=== PATIENT | male | born 1980 | race Caucasian/White ===

== ENCOUNTER 2017-08-29 16:58 | Emergency (ER) | payer MEDICARE, MEDICAID ==
--- NOTE | 2017-08-29 17:54 | ED ---
Altered Mental Status - HPI Summary HPI Summary: Patient here with episode of altered mental status. He is a developmentally delayed, nonverbal patient who resides at [facility]. Staff here with him today reports she went into his room to check on him while he was napping at 15:00 this afternoon and he was not responding in ways that he typically would (ie. making clicking and grunting sounds, engaging in self injurous behavior). Was also found to have dried blood around his nares. He does have a history of seizures - not worse as of late per staff's understanding. No recent signs or symptoms of infection, change in appetite, vomiting, diarrhea, change in urinary habits. Behaviors have been as usual up until episode today. Still not responding appropriately. No h/o recent injury. 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 - Allergies/Home Medications Allergies/Adverse Reactions: Allergies Allergy/AdvReac Type Severity Reaction Status Date / Time diazepam [From Valium] Allergy Unknown Verified 08/30/17 12:30 Reaction Details erythromycin base Allergy Unknown Verified 08/30/17 12:30 Reaction Details penicillin V [From Pen-Vee K] Allergy Unknown Verified 08/30/17 12:30 Reaction Details Sulfa (Sulfonamide Allergy Unknown Verified 08/30/17 12:30 Antibiotics) Reaction Details Home Medications: Home Medications Ascorbic Acid TAB* [Vitamin C TAB*] 500 mg PO DAILY 08/29/17 [History Confirmed 08/29/17] Multivitamin [Multivitamins] 1 cap PO DAILY 08/29/17 [History Confirmed 08/29/17 ] Pantoprazole TAB (NF) [Protonix TAB (NF)] 40 mg PO DAILY 08/29/17 [History Confirmed 08/29/17] PMH/Surg Hx/FS Hx/Imm Hx Previously Healthy: Yes Endocrine/Hematology History: Denies: Hx Anticoagulant Therapy GI History: Comment Only: Other GI Disorders - chronic constipation Neurological History: Reports: Hx Seizures Comment Only: Other Neuro Impairments/Disorders - mr Psychiatric History: Reports: Other Psychiatric Issues/Disorders - explosive disorder, self-injurious behavior - Surgical History Surgery Procedure, Year, and Place: see Bambi Tripathi hx - Immunization History Immunizations Up to Date: Yes Infectious Disease History: No Infectious Disease History: Denies: Hx Clostridium Difficile, Hx Hepatitis, Hx Human Immunodeficiency Virus (HIV), Hx of Known/Suspected MRSA, Hx Shingles, Hx Tuberculosis, Hx Known/ Suspected VRE, Hx Known/Suspected VRSA, History Other Infectious Disease, Traveled Outside the [place] in Last 30 Days - Family History Known Family History: Positive: Unknown - Social History Occupation: Disabled Lives: Senior Living - [employer] Alcohol Use: None Hx Substance Use: No Substance Use Type: Reports: None Hx Tobacco Use: No Smoking Status (MU): Never Smoked Tobacco Review of Systems - ROS Summary Review of Systems Summary: Level 5 caveat - DD w/ extremely limited verbal communication Negative: Drainage, Erythema Positive: Epistaxis - suspected Negative: Shortness Of Breath Negative: Vomiting, Diarrhea Genitourinary: Negative Neurological: Other - AMS per staff observation Psychological: Other - lack of behavior as usual All Other Systems Reviewed And Are Negative: Yes Physical Exam Triage Information Reviewed: Yes Vital Signs On Initial Exam: Initial Vitals Temp Pulse Resp BP Pulse Ox 98.4 F 99 16 86/49 97 08/29/17 17:08 08/29/17 17:08 08/29/17 17:08 08/29/17 17:08 08/29/17 17:08 Vital Signs Reviewed: Yes Appearance: Positive: No Pain Distress - lying on stretcher on Lt side - barely responds to chest rub - started removing clothes and pt begins to rouse - clicking and grunting as well as striking his face/head, Well-Nourished Skin: Positive: Warm, Skin Color Reflects Adequate Perfusion, Dry Head/Face: Positive: Normal Head/Face Inspection - no mónica trauma observed however pt has what appears to be scar tissue over his face and forehead Eyes: Positive: Normal - Right sclera appears clear without discharge however rest of exam is very limited due to patient's lack of cooperation - attempted to visualize eyes with ophthalmoscope passively as well as actively by opening the lids however patient forcefully contracts eyes shut ENT: Positive: Pharynx normal - limited exam due to patient's lack of cooperation however no gross blood or signs of trauma observed, Nasal drainage - dried dark scabbing/blood? Rt nare - no active bleeding or drainage observed, TMs normal - No hemotympanum. Negative: Hearing grossly normal - Unsure as patient does not respond appropriately to questions Dental: Negative: Dental Fracture @ Respiratory/Lung Sounds: Positive: Breath Sounds Present. Negative: Tracheal Deviation Cardiovascular: Positive: Normal, RRR, Pulses are Symmetrical in both Upper and Lower Extremities, S1, S2. Negative: Leg Edema Left, Leg Edema Right Abdomen Description: Positive: Soft, Other: - Vast abdominal girthpatient does grunt with palpation at times however does not pull my hands away or move to get away from exam which he is capable of doing; no skin changes observed over chest or torso as well as upper or lower extremities Bowel Sounds: Positive: Present Musculoskeletal: Positive: Other - Appears to have contractures in upper extremities; moves legs and arms spontaneously Neurological: Positive: Other - limited exam Psychiatric: Positive: Other - limited exam - staff reports pt is starting to act more like himself re: movements, sounds Diagnostics - Vital Signs Vital Signs Temp Pulse Resp BP Pulse Ox 08/29/17 17:08 98.4 F 99 16 86/49 97 - Laboratory Result Diagrams: 08/29/17 18:00 08/29/17 18:00 Lab Statement: Any lab studies that have been ordered have been reviewed, and results considered in the medical decision making process. Re-Evaluation - Re-Evaluation First Eval Change: Improved - pt was "not himself" upon presentation (see HPI) - not responding to verbal commands or sternal rub but more alert as soon as he was physically stimulated with removal of his bottoms to check for wounds, sores, trauma. He then began clicking, grunting, opening his eyes and intermittently hitting himself. Seizure pads were placed around bed at this time and request to transfer out of fast track VITOR - discussed w/ charge nurse who agreed to move him to room #16 for further w/u and closer monitoring Second Eval Change: Improved - BP improved after IVF and pt remained alert - becoming agitated "like at home" per staff during CT and so ativan was ordered - pt tolerated well and CT was successful for imaging his face, head and neck Third Eval Change: Worse - pt became agitated again about 1 hour after ativan 1mg IV and nursing requesting assistance to attain U/A via catheter as he was near combative with her - another 1mg ativan ordered - pt tolerated well and U/A obtained Altered Mental Statu Course/Dx - Course Course Of Treatment: Pt presents w/ staff for "AMS" and dried blood around nares when staff went in to check on him around 15:00 today. Since the episode was unwittnessed and pt is non-verbal, a comprehensive w/u was initiated to assess for head/face/neck injury as well as occult anemia/blood loss w/ low BP, occult infection/spesis, etc. After assessing his labs (elevated WBC w/ elevated lactic acid level) and low BP, a bolus of IVF was ordered. CXR was ordered as I was concerned for aspiration penumonia w/ h/o seizures - this test was not available prior to sign out. U/A results were also not evaluated as test was still pending at time of sign out. Furthermore, he was not found to have any lesions,wounds or area on skin that appeared to be infected. It was also suspected that pt's AMS could have been the result of an unwittnessed seizure w/ post-ictal state as he perked up once here. This could explain elevated lactic acid level if he ultimately does not have an infection. He does not have a fever and again, BP improved w/ fluids (NOTE: past BP's here have been low). Another theory was concussion as he had dried blood around his nose, I witnessed him striking himself in the head w/ h/o self injurous behavior and soft tissue swelling on of Lt side of face of CT scan. No acute fx, bleeding or neck injury found on CT reports prior to sign out. Pt discussed and signed out to Manisha Ro PA-C in gaurded but improved condition re: alertness and blood pressure which remained controlled for hours after IVF's. Whatever final dx comes of pt's testing here mu, would encourage staff to implement safer plan of action when he becomes self-injurous, especially if he is to be left alone. Staff here mu could not offer any coping skills/tactics omplemented at his residence when he became agitated tonight which is why ativan was provided. KIARA wraps to his arms were also orderd at one point as nursing reported pt was biting himself (did not break skin). Although it is known that he "just does this", a different approach may serve him better. And perhaps there is something in place at his residence and it was that this staff member is simply not aware of his coping tactics. - Diagnoses Provider Diagnoses: Altered mental status, unspecified, Facial trauma, Self-injurious behavior Discharge - Discharge Plan Condition: Stable Disposition: HOME Patient Education Materials: Altered Mental Status (ED) Referrals: John Renee MD [Primary Care Provider] -
[2017-08-29 18:14] LABS: ABS Basophils 0 10^3/ul (0-0.2); ABS Eosinophils 0 10^3/ul (0-0.6); ABS Lymphocytes 0.5 10^3/ul (1.0-4.8); ABS Monocytes 0.4 10^3/ul (0-0.8); ABS Neutrophils 9.2 10^3/ul (1.5-7.7); ABS Nucleated RBC 0 10^3/ul; Eosinophil % 0 % (0-6); Hematocrit 43 % (42-52); Hemoglobin 14.8 g/dl (14.0-18.0); Lymphocyte % 4.6 % (25-47); Mean Corpuscular HGB Conc 35 g/dl (31-36); Mean Corpuscular Hemoglobin 33 pg (27-31); Mean Corpuscular Volume 94 fL (80-94); Mean Platelet Volume 7 um3 (7.4-10.4); Nucleated Red Blood Cells % 0; Platelet Count 165 10^3/ul (150-450); Red Blood Count 4.53 10^6/ul (4.0-5.4); Red Cell Distribution Width 13 % (10.5-15); White Blood Count 10.1 10^3/ul (3.5-10.8)
[2017-08-29 18:21] LABS: INR 1.02 (0.77-1.02)
[2017-08-29 18:29] LABS: EGFR Non-African American 100.9 (>60)
[2017-08-29] MEDS ORDERED: NS 0.9% 1000 ML*IV.FLUID IV ONE (18:42)
[2017-08-29] MEDS ORDERED: LORazepam INJ* 2 MG/ML 1 ML VIAL IV PUSH ONE ×2 (19:11→20:37)
--- NOTE | 2017-08-29 20:40 | RAD ---
Indication: Altered mental status. Seizure disorder. Comparison: February 12, 2013 and August 25, 2012 CT exams. Technique: Noncontrast CT vertex of skull through foramen magnum. Report: Bilateral chronic calcified ocular globes. 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 Unchanged asymmetric LEFT larger than RIGHT lateral ventricles. Negative for sulcal effacement, midline shift, or effacement of the basal cisterns. Negative for new person matter white matter obscuration. Negative for intra or extra-axial hemorrhage. Negative for calvarial or skull base fracture. Grossly clear visualized paranasal sinuses and mastoid air spaces. Negative for scalp hematoma. IMPRESSION: 1. No CT evidence for acute traumatic brain injury or other acute intracranial process. 2. 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
--- NOTE | 2017-08-29 20:45 | RAD ---
INDICATION: Altered mental status. Seizure disorder. Dry blood around the RIGHT nare. COMPARISON: August 25, 2012 TECHNIQUE: Multidetector CT base of the skull through mandible without contrast. Multiplanar reformation. REPORT: Refer to dedicated CT of the brain for description of congenital malformations of the brain. Bilateral calcified cartilage of the external ears. Bilateral phthisis bulbi. Soft tissue swelling at the LEFT greater than RIGHT nasolabial folds and over the maxillary oral lip. No loculated hematoma visualized. Negative for subcutaneous emphysema. The orbital and maxillary sinus margins, zygomatic arches, lamina papyracea, base of the maxilla, pterygoid plates, and nasal bones are intact. The mandible is intact. Normal temporal mandibular joint alignment. Normally aerated paranasal sinuses and mastoid air spaces. IMPRESSION: 1. Negative for maxillofacial fracture. 2. Soft tissue swelling at the LEFT greater than RIGHT nasolabial folds and over the maxillary oral lip. No loculated hematoma visualized. Negative for subcutaneous emphysema.
--- NOTE | 2017-08-29 20:52 | RAD ---
INDICATION: Altered mental status. Seizure disorder. COMPARISON: CT brain and maxillofacial exams of the same date. TECHNIQUE: Multidetector CT images foramen magnum to lung apices without contrast. Multiplanar reformation. REPORT: Normal vertebral alignment accounting for exam positioning without spondylolisthesis or subluxation at any level. Negative for cervical vertebral body or posterior element fracture. Negative for paravertebral hematoma. Grossly preserved disc spaces. IMPRESSION: No CT evidence for traumatic cervical spine injury.
--- NOTE | 2017-08-29 21:14 | RAD ---
Indication: Altered mental status. History of pneumonia. Comparison: August 12, 2015 CT. Technique: Sitting AP and lateral chest views. Report: Clear lungs and pleural spaces. Negative for pneumothorax. Negative for cardiomegaly. Unremarkable central pulmonary vasculature. Chronic retrocardiac hiatal hernia. Negative for free air beneath the diaphragm. IMPRESSION: No evidence for pneumonia. No evidence for acute intrathoracic disease.
[2017-08-29 21:42] LABS: Urine Appearance Clear; Urine Blood Negative (Negative); Urine Color Yellow; Urine Ketones Trace (Negative); Urine Protein Negative (Negative); Urine Specific Gravity 1.028 (1.010-1.030); Urine Urobilinogen Negative (Negative)
[2017-08-29] MEDS ORDERED: Acetaminophen SUPP* 650 MG SUPP PR ONE (22:43)
[2017-08-29 23:08] VITALS: BP 112/70
--- NOTE | 2017-08-30 01:01 | PN ---
Progress Note - Progress Note Date of Service: 08/30/17 Note: Signed out by AMBROSIO Mancilla Course of treatment: unwitnessed AMS w/ nares dried blood. COuld charlee been post ictal as he perked up once here. No acute trauma identified. Labs are relative to his usual. Pending CXR to assses for aspiration pneum and U/A for uti. Signed outto Manisha Pena Chest x-ray negative. UA negative for any UTI. 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 Stable.
== END 2017-08-29 23:37 | disposition home or self-care (01) ==
LOC: ED 16:58
DX: R41.82 Altered mental status, unspecified (principal); S09.93XA Unspecified injury of face, initial encounter; Y33.XXXA Other specified events, undetermined intent, initial encounter; Y92.89 Other specified places as the place of occurrence of the external cause; Q04.9 Congenital malformation of brain, unspecified; Z91.5 Personal history of self-harm; Z88.3 Allergy status to other anti-infective agents; Z88.0 Allergy status to penicillin; Z88.2 Allergy status to sulfonamides; Z88.8 Allergy status to other drugs, medicaments and biological substances
CPT/HCPCS: 36415; 70450; 70486; 71046; 72125; 80053; 81003; 83605; 83735; 85025; 85610; 87502; 93005; 96360; 96361; 99284; A9270-GY; J2060

== ENCOUNTER 2017-08-30 12:07 | Observation (INO) | payer MEDICARE, MEDICAID ==
[2017-08-30] MEDS ORDERED: NS 0.9% 1000 ML* 2,000 ML IV ONE (12:39)
[2017-08-30] MEDS ORDERED: metroNIDAZOLE IV 500 MG/100ML* 500 MG/100 ML BAG IVPB ONE (12:49)
[2017-08-30] MEDS ORDERED: Ciprofloxacin 400MG IVPREMIX(* 400 MG/200 ML BAG IVPB ONE (12:49)
[2017-08-30] MEDS ORDERED: Vancomycin(*) 1,000 MG VIAL IVPB SCH (13:00)
[2017-08-30 13:31] LABS: INR 1.07 (0.77-1.02)
--- NOTE | 2017-08-30 13:49 | RAD ---
HISTORY: Sepsis COMPARISONS: August 29, 2017 VIEWS: 1: frontal portable view of the chest at 1:22 PM. The patient is slightly obliqued to the left. Evaluation the lung apices is limited by head positioning. FINDINGS: LINES AND TUBES: None. CARDIOMEDIASTINAL SILHOUETTE: The cardiomediastinal silhouette is normal for portable technique. PLEURA: The costophrenic angles are sharp. No pleural abnormalities are noted. LUNG PARENCHYMA: The lungs are clear. ABDOMEN: The upper abdomen is clear. There is no subphrenic gas. BONES AND SOFT TISSUES: No bone or soft tissue abnormalities are noted. IMPRESSION: NO ACTIVE CARDIOPULMONARY DISEASE.
[2017-08-30 13:54] LABS: EGFR Non-African American 156.8 (>60)
[2017-08-30] MEDS ORDERED: Vancomycin(*) 1,000 MG - ED ONCE IVPB ONE ×2 (14:00)
[2017-08-30 14:39] LABS: ABS Basophils 0 10^3/ul (0-0.2); ABS Eosinophils 0.1 10^3/ul (0-0.6); ABS Monocytes 0.3 10^3/ul (0-0.8); ABS Neutrophils 2.8 10^3/ul (1.5-7.7); ABS Nucleated RBC 0 10^3/ul; Eosinophil % 2.5 % (0-6); Hematocrit 28 % (42-52); Hemoglobin 9.9 g/dl (14.0-18.0); Lymphocyte % 23.9 % (25-47); Mean Corpuscular HGB Conc 35 g/dl (31-36); Mean Corpuscular Hemoglobin 33 pg (27-31); Mean Corpuscular Volume 95 fL (80-94); Mean Platelet Volume 6 um3 (7.4-10.4); Nucleated Red Blood Cells % 0; Platelet Count 110 10^3/ul (150-450); Red Blood Count 2.99 10^6/ul (4.0-5.4); Red Cell Distribution Width 13 % (10.5-15); White Blood Count 4.3 10^3/ul (3.5-10.8)
[2017-08-30 15:33] LABS: Urine Appearance Cloudy; Urine Blood Negative (Negative); Urine Color Straw; Urine Ketones Negative (Negative); Urine Protein Negative (Negative); Urine Specific Gravity 1.005 (1.010-1.030); Urine Urobilinogen Negative (Negative)
[2017-08-30] MEDS ORDERED: Acetaminophen TAB* 325 MG PO PRN (17:39)
[2017-08-30] MEDS ORDERED: Ondansetron INJ* 2 MG/ML VIAL IV PRN (17:39)
[2017-08-30 18:01] LABS: ABS Basophils 0 10^3/ul (0-0.2); ABS Eosinophils 0.1 10^3/ul (0-0.6); ABS Lymphocytes 1.1 10^3/ul (1.0-4.8); ABS Monocytes 0.3 10^3/ul (0-0.8); ABS Neutrophils 2.3 10^3/ul (1.5-7.7); ABS Nucleated RBC 0 10^3/ul; Eosinophil % 2.5 % (0-6); Hematocrit 31 % (42-52); Hemoglobin 10.5 g/dl (14.0-18.0); Lymphocyte % 29.1 % (25-47); Mean Corpuscular HGB Conc 34 g/dl (31-36); Mean Corpuscular Hemoglobin 33 pg (27-31); Mean Corpuscular Volume 95 fL (80-94); Mean Platelet Volume 6 um3 (7.4-10.4); Nucleated Red Blood Cells % 0.1; Platelet Count 108 10^3/ul (150-450); Red Blood Count 3.23 10^6/ul (4.0-5.4); Red Cell Distribution Width 12 % (10.5-15); White Blood Count 3.8 10^3/ul (3.5-10.8)
[2017-08-30 18:15] LABS: EGFR Non-African American 166.7 (>60); Immature Retic Fraction 0.47
[2017-08-30 18:18] LABS: Hematocrit for Retic CNT 31 % (42-52); RBC Retic Count 3.23 10^6/ul (4.6-6.2)
[2017-08-30] MEDS ORDERED: cefTRIAXone(*) 1 GM in NS 0.9% 50 ML* 50 ML IVPB SCH (18:30)
[2017-08-30] MEDS: NS 0.9% 1000 ML* 1,000 ML IV SCH (19:28)
[2017-08-30] MEDS ORDERED: Azithromycin IV(*) 500 MG in NS 0.9% 250 ML* 250 ML IVPB SCH (20:00)
[2017-08-30] MEDS ORDERED: OXCARBAZEPINE 600 MG PO SCH (21:00)
[2017-08-30] MEDS ORDERED: Topiramate TAB(*) 100 MG PO SCH (21:00)
--- NOTE | 2017-08-30 22:36 | HP ---
CC: Dr. Renee * HISTORY AND PHYSICAL: DATE OF ADMISSION: 08/30/17 PRIMARY CARE PROVIDER: Dr. Renee. ATTENDING PHYSICIAN WHILE IN THE HOSPITAL: Carol Ko MD * (report dictated by Karma Mcleod NP). CHIEF COMPLAINT: 1. Altered mental status. 2. Decreased appetite. 3. Not feeling well. HISTORY OF PRESENT ILLNESS: Mr. Stewart is a 37-year-old male patient who comes into the ED today. He is a resident at [facility]. He is nonverbal. He has severe intellectual developmental delay. He is really unable to participate in giving any history. According to staff that is with him presently at the bedside, they have noticed in the last couple of days that he has had decreased in his mentation. He has not been acting himself. He has had decreased input. He has been having decreased appetite, not drinking. They were concerned yesterday because they noticed some blood near his nares, they are concerned as he may have hit his head, had CT imaging in the ER when he came in yesterday on the , was essentially negative, but it was noted at discharge he did have a fever. I noticed today that he was not acting himself again. They do note that in the last of couple days that he has had a cough and ___ and congested. He also does have a history of self-inflicted behaviors. [facility] staff was concerned because he did not appear to be again acting himself. There has been no reports of diarrhea. No tarry stools. No vomiting. No coffee grounds emesis. He really is unable to tell us if he is in pain or not, they were concerned and they brought the patient into the ED today to be reevaluated because he appeared to be getting worse. Because of this , we were asked to evaluate for admission. PAST MEDICAL HISTORY: Significant for: 1. Intellectual developmental delay. 2. Nonverbal. 3. Constipation. 4. GERD. 5. Seizures. 6. He is legally binding. 7. Explosive disorder. 8. Self-inflicted behaviors. PAST SURGICAL HISTORY: Unable to be obtained. HOME MEDICATIONS: According to the list provided include: 1. Halcion 0.75 mg p.o. daily as needed. 2. Triamcinolone cream 1 application topically daily as needed. 3. Fleet enema 1 enema [place] daily as needed. 4. Dulcolax suppository 10 mg [place] daily as needed. 5. Debrox 3 drops otic b.i.d. 6. Tylenol 650 mg p.o. every 4 hours as needed. 7. Benadryl 25 mg p.o. t.i.d. as needed. 8. Seroquel 100 mg p.o. t.i.d. 9. Echinacea 350 mg p.o. daily. 10. Vitamin C 500 mg daily. 11. Chlorhexidine mouthwash 5 cc p.o. b.i.d. 12. Saline nasal drops 2 sprays inhaled b.i.d. 13. Colace 100 mg p.o. b.i.d. 14. Oxcarbazepine 600 mg p.o. b.i.d. 15. Trileptal 300 mg p.o. b.i.d. 16. Topamax 200 mg daily. 17. Topamax 100 mg p.o. b.i.d. 18. Catapres 1.5 tablets p.o. daily. 19. Protonix 40 mg daily. 20. Zoloft 150 mg daily. 21. Bacitracin 1 application topically daily. 22. Metoprolol XL 25 mg p.o. daily. 23. Multivitamin 1 tablet daily. 24. Lactulose 30 cc p.o. daily. ALLERGIES TO MEDICATIONS: Include VALIUM, ERYTHROMYCIN, PENICILLIN, and SULFA. FAMILY HISTORY: Reviewed with the patient's mother and essentially is noncontributory. There are no reports of seizures disorder or no reports of heart disease with the family. SOCIAL HISTORY: He does reside at [facility]. Surrogate decision maker is his mother. He is not a smoker. He does not drink. REVIEW OF SYSTEMS: Unable to be obtained because of the patient is nonverbal. PHYSICAL EXAMINATION GENERAL: At this time, Mr. Stewart is a 37-year-old male patient. He is sitting in the ED stretcher. He does not appear to be in any acute respiratory distress. VITAL SIGNS: Initially when the patient came in, his blood pressures were 87/44 ; he appeared to be hypothermic at 95.6, response to the fluid, last blood pressure was 113/61, pulse 85, respirations 18, O2 sat 100%. HEENT: Head: Atraumatic and normocephalic. Eyes: EOMs are intact. Sclerae anicteric. Throat: Oral mucosa appears to be dry. No oropharyngeal erythema. LUNGS: He did have wheezing on his left side. He had equal diaphragmatic expansion. HEART: Sounds S1, S2. ABDOMEN: Soft, it was flat, cannot really illicit any tenderness. Bowel sounds are present. EXTREMITIES: He has contracted lower extremities. There is no peripheral edema. No rashes were noted. No signs of cellulitis. SKIN: Grossly intact, did not appreciate any open areas. DIAGNOSTIC STUDIES/LAB DATA: Today revealed a WBC of 4.3, RBC of 2.99, hemoglobin 9.9, hematocrit 28, platelet count 110. His INR was 1.07. Sodium is 133, potassium is 3.6, chloride was 108. His sodium less than 24 hours ago was 130 and his chloride was 100, his bicarb is 22, the BUN is 22, his creatinine was 0.58, down from 0.85, his glucose was 122, lactic was 2.3, repeat was 1.2, calcium 8.2, total bili 0.2, ALT 9, alk phos was 53. Troponin 0 , CRP 55. Urine was obtained today, it was negative. Serology was flu negative as well yesterday. He had chest x-ray obtained today revealing no active cardiopulmonary disease. EKG today shows a normal sinus rhythm, rate of 89. He had flattened T waves in V4 and V5, biphasic in V2 and V3, flattened V3. Previous EKG again difficult with significant amount of artifact. Previous EKG did show sinus tachycardia, rate of 126 from 2016. Old medical records were reviewed. He had a brain CT that essentially was negative yesterday. No CT evidence of acute traumatic brain injury or other intracranial process. He had a maxillofacial CT done yesterday as well, which showed negative for maxillofacial fracture, soft tissue swelling of the left greater than right knee nasolabial fold and over the maxillary oral lip and he has cervical spine CT as well, which revealed no CT evidence for traumatic cervical spine injury. Old medical records reviewed. ASSESSMENT AND PLAN: Mr. Sharif is a 37-year-old male patient that comes into the emergency department today with complaints of altered mental status, not feeling well, concerned for some episode of vomiting and also in addition to this was noted to have being congested, runny nose and a cough over the last few days. We were asked to evaluate for admission. He will be admitted under observation status: 1. Systemic inflammatory response syndrome. Again, it is unclear of the etiology if he does have an infection at this point. I am concerned of a respiratory source with wheezing on exam. He does not appear to have pneumonia on x-ray. However, I do think that it is appropriate because he had a fever yesterday of 101 on 08/29/17 when he was here in the ED. Did go ahead and put him on Rocephin and azithromycin, try to get sputum cultures, Legionella and Strep pneumo antigens and we will continue to follow, blood cultures were sent. We will continue to follow. 2. Anemia. I am repeating a sample now. There has been no reports of tarry stools, no reports of coffee ground emesis, so repeat his H and H now. I also did send off iron studies, folate, MMA, B12, retic count, haptoglobin and LDH time being, we will continue to follow. If there are any concerns of bleeding, the source of this would be unclear at this point and I did order stool occult blood. 3. DVT prophylaxis. Because of the new onset anemia, I did put him on SCDs. 4. History of intellectual developmental delay. Supportive care. 5. History of constipation. I will continue his meds. 6. Gastroesophageal reflux disease. Continue PPI therapy. 7. Seizures. We will continue his meds as prescribed, also he is on seizure precautions. 8. History of explosive disorder. Continue meds as prescribed. 9. Hypertension. This is probably multifactorial, could be related to infection, could also be related to the fact that he was on blood pressure medications and the fact that he is not eating and drinking. He may have decreased clearance particularly from his long-acting BP meds. He responded to fluids, holding the BP meds for time being and we will continue to follow him. 10. Fluids, electrolytes, and nutrition. He can have a regular diet. 11. Code status. Full code. TIME SPENT: Time spent on admission 60 minutes, greater than half of the time was spent [id number] with the patient obtaining my history and physical, other half time spent going over the plan of care with the patient and implementing plan of care. I did discuss the plan of care with my attending, Dr. Ko, he is in agreement. KARMA MCLEOD, AUTO AIR CONDITIONING APPRENTICE [id number]/[facility] #: [id number] [place]
[2017-08-30] MEDS: Chlorhexidine MOUTHWASH 0.12%* 15 ML UDC SWISH SPIT SCH (23:15)
[2017-08-30] MEDS: Saline NASAL DROPS 0.65%* 1 DROP BTL BOTH NARES SCH (23:15)
[2017-08-30] MEDS: OXcarbazepine TAB(*) 300 MG PO SCH (23:16)
[2017-08-30] MEDS: Docusate CAP* 100 MG PO SCH (23:17)
[2017-08-30] MEDS: QUEtiapine TAB* 100 MG PO SCH (23:17)
[2017-08-31] MEDS ORDERED: Haloperidol INJ IV/IM* 5 MG/ML AMP IV ONE (04:11)
[2017-08-31] MEDS ORDERED: Haloperidol INJ IV/IM* 5 MG/ML AMP ONE (04:20)
[2017-08-31] MEDS: NS 0.9% 1000 ML* 1,000 ML IV SCH (05:34)
[2017-08-31 08:33] LABS: ABS Basophils 0 10^3/ul (0-0.2); ABS Eosinophils 0.3 10^3/ul (0-0.6); ABS Lymphocytes 1.4 10^3/ul (1.0-4.8); ABS Monocytes 0.3 10^3/ul (0-0.8); ABS Neutrophils 2.8 10^3/ul (1.5-7.7); ABS Nucleated RBC 0 10^3/ul; Eosinophil % 5.3 % (0-6); Hematocrit 30 % (42-52); Hemoglobin 10.6 g/dl (14.0-18.0); Lymphocyte % 28.7 % (25-47); Mean Corpuscular HGB Conc 35 g/dl (31-36); Mean Corpuscular Hemoglobin 33 pg (27-31); Mean Corpuscular Volume 93 fL (80-94); Mean Platelet Volume 7 um3 (7.4-10.4); Nucleated Red Blood Cells % 0; Platelet Count 106 10^3/ul (150-450); Red Blood Count 3.23 10^6/ul (4.0-5.4); Red Cell Distribution Width 13 % (10.5-15); White Blood Count 4.8 10^3/ul (3.5-10.8)
[2017-08-31 08:54] LABS: EGFR Non-African American 199.9 (>60)
[2017-08-31] MEDS ORDERED: Sertraline* 100 MG TAB PO SCH (09:00)
[2017-08-31] MEDS ORDERED: CMCS: Pantoprazole TAB (NF) 40 MG TAB PO SCH (09:00)
[2017-08-31] MEDS ORDERED: Topiramate TAB(*) 100 MG PO SCH (09:00)
[2017-08-31] MEDS ORDERED: Ascorbic Acid TAB* 500 MG PO SCH (09:00)
[2017-08-31 09:15] VITALS: BP 109/55
[2017-08-31] MEDS: Chlorhexidine MOUTHWASH 0.12%* 15 ML UDC SWISH SPIT SCH (10:23)
[2017-08-31] MEDS: Saline NASAL DROPS 0.65%* 1 DROP BTL BOTH NARES SCH (10:23)
[2017-08-31] MEDS: QUEtiapine TAB* 100 MG PO SCH (10:24)
[2017-08-31] MEDS: Docusate CAP* 100 MG PO SCH (10:24)
[2017-08-31] MEDS: OXcarbazepine TAB(*) 300 MG PO SCH (10:27)
--- NOTE | 2017-08-31 12:50 | DS ---
DATE OF ADMISSION: 08/30/2017. DATE OF DISCHARGE: 08/31/2017. ADMITTING PROVIDER: Temo Mcleod NP. PRIMARY CARE PHYSICIAN: John Renee MD. ATTENDING PHYSICIAN: Hakeem Vidal MD. CHIEF COMPLAINT: Decreased appetite, altered mental status in the setting of profound intellectual development and behavioral deficits, report of black liquid found near nose two days prior to admission. PRINCIPAL DIAGNOSIS: Constipation. HISTORY OF PRESENT ILLNESS AND HOSPITAL COURSE: James Stewart is a 37-year-old male with a past medical history of severe intellectual developmental delay, explosive disorder, seizures, GERD, constipation with frequent use of enemas and suppositories despite long-standing Lactulose use, nonverbal, and self- injurious behavior. He was brought in by his providers as he has not been acting himself, has had decreased appetite over the last few days. Notably he had presented to the emergency room on the day prior with report of a black substance that they thought was possible feces or stool near his nares and there was concern he may have hit his head. He had a CT which was essentially negative. Of note, on discharge from the ED, he was noted to have a fever of 101. The patient had a last known bowel movement that afternoon prior to emergency room visit. He was found on this admission to have concern for SIRS. He had a chest x-ray which was without infiltrate, but on admitting there was concern for wheezing and he was put on Ceftriaxone and Azithromycin initially. He had negative strep legionella and strep pneumoniae urine antigens. MRSA nares was negative. He had stool occult blood which was negative and influenza had been negative in the emergency room on August 29. He was afebrile during this admission without evidence of cough. He has no leukocytosis. The morning of hospital day number two, he had what the nurse describes as a very large and very hard bowel movement without evidence of blood. He is being discharged back home with working diagnosis of agitation in the setting of constipation and also evidence of iron deficiency anemia with iron of 22, iron sat of 13, ferritin of 68. He had an LDH of 93. His hemoglobin on presentation was 9.9, improved to 10.5 on the day of discharge. It has been recommended to increase his standing Lactulose to 30 mg twice a day from once a day and continue Colace 100 mg b.i.d., and prn orders for fleet enemas and suppositories as needed. There is also consideration to follow-up with Gastroenterology as an outpatient to rule out any source of upper GI bleed, although as of noted stool occult blood was negative here, but there was some concern for a "black" substance found near his nose on August 29. He does carry a standing history of GERD. No other medication changes were made. MEDICATIONS ON DISCHARGE: 1. Ascorbic acid 500 mg p.o. daily. 2. Peridex mouthwash 5 ml p.o. b.i.d. 3. Docusate 100 mg p.o. b.i.d. 4. Trileptal 300 mg p.o. b.i.d. 5. Pantoprazole 40 mg p.o. daily. 6. Seroquel 100 mg p.o. t.i.d. 7. Saline nasal drops two sprays inhaled b.i.d. 8. Sertraline 150 mg p.o. daily. 9. Topamax 200 mg p.o. daily. 10. Tylenol 650 mg p.o. q.4 hours prn. 11. Bacitracin one application topical daily. 12. Bisacodyl (Dulcolax suppository) per rectum prn daily. 13. Debrox three drops otic b.i.d. 14. Clonidine 1.5 mg tabs (0.1 mg) p.o. b.i.d. 15. Benadryl 25 mg p.o. t.i.d. prn. 16. Echinacea 350 mg p.o. daily. 17. Metoprolol Succinate 25 mg p.o. daily. 18. Lactulose 30 ml p.o. b.i.d. (increased from daily). 19. Multivitamin one tab p.o. daily. 20. Oxcarbazepine 600 mg p.o. b.i.d. 21. Fleet enema per rectum prn daily. 22. Topamax 100 mg p.o. daily. 23. Kenalog 0.1% cream applied topically prn. 24. Triazolam tabs 0.7 mg p.o. daily (Halcion). DIET: Mechanical ground texture. ACTIVITY LEVEL: No restrictions. FOLLOW-UP: Please follow-up with Dr. John Renee within five days of discharge. Consideration to see wet roaster for upper GI evaluation to rule out GI source of anemia, though his stool occult blood was negative here. Also consideration to start iron supplementation, though Albertina, the casting house worker, was leery of this given his long-standing constipation issues. Time spent on this discharge was 35 minutes. [id number]/[facility] #: [id number] ALEXANDREA
== END 2017-08-31 13:00 | disposition home or self-care (01) ==
LOC: ED 12:07 → MED 17:31
PROVIDERS: ADMIT Internal Medicine; ATTEND Internal Medicine
DX: K59.00 Constipation, unspecified (principal); R41.82 Altered mental status, unspecified; R63.0 Anorexia; F81.9 Developmental disorder of scholastic skills, unspecified; K21.9 Gastro-esophageal reflux disease without esophagitis; R56.9 Unspecified convulsions; F63.81 Intermittent explosive disorder; Z72.89 Other problems related to lifestyle; F80.9 Developmental disorder of speech and language, unspecified; D64.9 Anemia, unspecified; I10 Essential (primary) hypertension
CPT/HCPCS: 36415; 71045; 80048; 80053; 80183; 80201; 81003; 82270; 82607; 82728; 82746; 82803; 83010; 83540; 83550; 83605; 83615; 83921; 84145; 84484; 85025; 85045; 85610; 85730; 86140; 87040; 87641; 87899; 93005; 96365; 96366; 99285; A9270-GY; J0456; J0696; J1630; J3370; J3490

== ENCOUNTER 2018-08-04 12:38 | Emergency (ER) | payer MEDICARE, MEDICAID ==
[2018-08-04 15:23] VITALS: BP 145/79
--- NOTE | 2018-08-04 16:05 | UC ---
Skin Complaint HPI - HPI Summary HPI Summary: 38-year-old male with history of developmental delay presents with caregivers reporting abrasion to his left ulnar hand that was discovered last evening. Unknown mechanism of injury. States patient has continued to use the hand normally. Denies fever, chills, or purulent drainage. - History of Current Complaint Chief Complaint: UCSkin Time Seen by Provider: 08/04/18 15:48 Stated Complaint: ABRASION ON RT WRIST Pain Intensity: 0 - Allergy/Home Medications Allergies/Adverse Reactions: Allergies Allergy/AdvReac Type Severity Reaction Status Date / Time diazepam [From Valium] Allergy Unknown Verified 08/04/18 15:23 Reaction Details erythromycin base Allergy Unknown Verified 08/04/18 15:23 Reaction Details penicillin V [From Pen-Vee K] Allergy Unknown Verified 08/04/18 15:23 Reaction Details Sulfa (Sulfonamide Allergy Unknown Verified 08/04/18 15:23 Antibiotics) Reaction Details cod liver oil [From Desitin] AdvReac Unknown Verified 08/04/18 15:24 Reaction Details zinc oxide [From Desitin] AdvReac Unknown Verified 08/04/18 15:24 Reaction Details Home Medications: Home Medications [id number] [Beano] 300 unit PO TID 08/04/18 [History Confirmed ] Chlorhexidine Gluconate [Peridex] 15 ml MM BID 08/04/18 [History Confirmed 08/04] Docusate CAP* [Colace Cap*] 100 mg PO BID 08/04/18 [History Confirmed 08/04/18] Lactulose* 30 ml PO BID 08/04/18 [History Confirmed 08/04/18] Metoprolol Succinate XL TAB* [Toprol XL TAB*] 25 mg PO DAILY 08/04/18 [History Confirmed 08/04/18] Multivitamin/Iron/Folic Acid [Multivitamin with Iron Tablet] 1 each PO DAILY 07/22 [History Confirmed 08/04/18] OXcarbazepine TAB(*) [Trileptal 300 mg TAB(*)] 300 mg PO BID 08/04/18 [History Confirmed 08/04/18] Pantoprazole TAB * [Protonix TAB*] 40 mg PO DAILY 08/04/18 [History Confirmed ] Polyethylene Glycol 3350* [Miralax*] 17 gm PO DAILY 08/04/18 [History Confirmed 08/04/18] QUEtiapine TAB* [Seroquel 100 MG *] 100 mg PO TID 08/04/18 [History Confirmed ] QUEtiapine XR TAB* [Seroquel Xr 300 MG TAB*] 300 mg PO BEDTIME 08/04/18 [ History Confirmed 08/04/18] Saline NASAL SPRAY 0.65%* [Sodium Chloride 0.65% Nasal [place]*] 1 spray BOTH NARES BID 08/04/18 [History Confirmed 08/04/18] Sertraline* [Zoloft*] 150 mg PO DAILY 08/04/18 [History Confirmed 08/04/18] Simethicone TAB* [Mylicon TAB*] 2 tab PO QID 08/04/18 [History Confirmed ] Topiramate TAB(*) [Topamax 100 mg tab] 100 mg PO BID 08/04/18 [History Confirmed 08/04/18] Topiramate [Topamax] 200 mg PO DAILY 08/04/18 [History Confirmed 08/04/18] cloNIDine TAB* [Catapres 0.1 MG TAB*] 0.1 mg PO BID 08/04/18 [History Confirmed 08/04/18] PMH/Surg Hx/FS Hx/Imm Hx - Additional Past Medical History Additional PMH: Developmental delay Cardiovascular History: Hypertension GI/ History: Gastroesophageal Reflux Other History Of: Negative For: Anticoagulant Therapy - Surgical History Surgical History: Unable to Obtain/Confirm Surgery Procedure, Year, and Place: see Bambi Tripathi hx - Family History Known Family History: Positive: Unknown - LEVEL 5 CAVEAT: LIMITED DUE TO AMS - Social History Occupation: Disabled Lives: [place] Alcohol Use: None Substance Use Type: None Smoking Status (MU): Never Smoked Tobacco - Immunization History Most Recent Influenza Vaccination: 2014 Most Recent Tetanus Shot: 2010 Most Recent Pneumonia Vaccination: never Review of Systems All Other Systems Reviewed And Are Negative: Yes Constitutional: Negative: Fever, Chills Skin: Positive: Other - See HPI Respiratory: Positive: Negative Cardiovascular: Positive: Negative Gastrointestinal: Positive: Negative Genitourinary: Positive: Negative Musculoskeletal: Positive: Negative Neurological: Positive: Negative Is Patient Immunocompromised?: No Physical Exam Triage Information Reviewed: Yes Completion Of Physical Exam Limited Due To: Patient is uncooperative with exam - Due to developmental delay Appearance: Well-Appearing, No Pain Distress, Well-Nourished Vital Signs: Initial Vital Signs Temp 97.4 F 08/04/18 15:15 Pulse 108 08/04/18 15:15 Resp 24 08/04/18 15:15 BP 145/79 08/04/18 15:15 Vital Signs Reviewed: Yes Respiratory: Positive: Lungs clear, Normal breath sounds, No respiratory distress Cardiovascular: Positive: No Murmur, Pulses Normal, Brisk Capillary Refill Abdomen Description: Positive: Nontender, No Organomegaly, Soft. Negative: Distended, Guarding Bowel Sounds: Positive: Present Musculoskeletal: Positive: ROM Intact Neurological: Positive: Alert Skin: Positive: Significant Lesion(s) - 1 cm superficial abrasion to left ulnar hand with crusting. Mild erythema at wound margins. No swelling or increased warmth or purulent discharge. Course/Dx - Course Course Of Treatment: 38-year-old male with history of developmental delay presents with caregivers reporting abrasion to his left ulnar hand that was discovered last evening. Unknown mechanism of injury. States patient has continued to use the hand normally. Denies fever, chills, or purulent drainage. Afebrile. Vital signs stable. Exam reveals an alert male in no acute distress with a 1 cm circular superficial abrasion to his palmar left hand with some crusting. There is some mild erythema around the periphery of the injury however no increased warmth, swelling, or purulent discharge. Recommending routine cleansing with soap and water, applying mupirocin ointment twice daily, and covering with a bandage until healed. Follow-up with his primary care provider in 7 days if symptoms do not improve. Anticipatory guidance and warning symptoms were reviewed with the caregivers. They verbalized understanding and agreed with plan of care. - Differential Diagnoses - Skin Complaint Differential Diagnoses: Cellulitis, MRSA, Tinea - Diagnoses Provider Diagnosis: Abrasion of left hand Discharge - Sign-Out/Discharge Documenting (check all that apply): Patient Departure All imaging exams completed and their final reports reviewed: No Studies - Discharge Plan Condition: Stable Disposition: HOME Prescriptions: Mupirocin 2% OINT* [Bactroban 2 % Oint*] 1 applic TOPICAL BID #1 tube Patient Education Materials: Abrasion (ED) Referrals: John Renee MD [Primary Care Provider] - If Needed Additional Instructions: Keep the abrasion to his left hand clean using a mild soap and water. Apply mupirocin ointment twice a day until healed. Cover with a bandage. Follow-up with primary care provider in 7 days if no improvement in symptoms. Watch for signs of infection including fever greater than 100.5 F, redness that spreads, swelling of the hand, posterior from the wound. Seek immediate medical attention should any of these occur. - Billing Disposition and Condition Condition: STABLE Disposition: Home - Attestation Statements Provider Attestation: I was available for consult. This patient was seen by the ASHLEY. The patient was not presented to, seen by, or examined by me. EK
== END 2018-08-04 16:14 | disposition home or self-care (01) ==
LOC: UCCORT 12:38
DX: S60.512A Abrasion of left hand, initial encounter (principal); R62.50 Unspecified lack of expected normal physiological development in childhood; I10 Essential (primary) hypertension; K21.9 Gastro-esophageal reflux disease without esophagitis; Z79.899 Other long term (current) drug therapy; Z91.09 Other allergy status, other than to drugs and biological substances; Z88.1 Allergy status to other antibiotic agents; Z88.8 Allergy status to other drugs, medicaments and biological substances; Z88.2 Allergy status to sulfonamides; Z88.0 Allergy status to penicillin; X58.XXXA Exposure to other specified factors, initial encounter; Y92.9 Unspecified place or not applicable
CPT/HCPCS: 99212; G0463

== ENCOUNTER 2021-12-18 17:58 | Inpatient (IN) ==
[2021-12-18] MEDS ORDERED: Lactated Ringers 1000 ml BAG 1,000 ML IV ONE (18:16)
[2021-12-18 19:17] LABS: ABS Eosinophils 0.1 10^3/ul (0-0.6); ABS Lymphocytes 0.9 10^3/ul (1.0-4.8); ABS Monocytes 0.3 10^3/ul (0-0.8); ABS Neutrophils 2.2 10^3/ul (1.5-7.7); Eosinophil % 1.7 %; Hematocrit 30 % (42-52); Hemoglobin 9.8 g/dL (14.0-18.0); Lymphocyte % 25.4 %; Mean Corpuscular HGB Conc 33 g/dL (31-36); Mean Corpuscular Hemoglobin 30 pg (27-31); Mean Corpuscular Volume 93 fL (80-94); Nucleated Red Blood Cells % 0.1; Platelet Count 154 10^3/uL (150-450); Red Blood Count 3.23 10^6 /uL (4.18-5.48); Red Cell Distribution Width 13 % (10-15); White Blood Count 3.3 10^3/uL (3.5-10.8)
[2021-12-18 19:36] LABS: Activated Partial Thrombo Time 28.3 seconds (26.0-38.0); INR 1.06 (0.86-1.15)
[2021-12-18 19:57] LABS: Albumin 3.6 g/dL (3.2-5.2); Calcium 8.6 mg/dL (8.6-10.3); Total Bilirubin 0.4 mg/dL (0.2-1.0)
[2021-12-18 20:03] LABS: Albumin/Globulin Ratio 1.6 (1-3); C Reactive Protein 6.5 mg/L (<8.01); Globulin 2.2 g/dL (2-4); Total Protein 5.8 g/dL (6.4-8.9); eGFR CKD-EPI 126.2 (>60)
[2021-12-18 21:12] LABS: High Sensitivity Troponin 1 Hr < 3 pg/mL (<20)
[2021-12-18 21:21] LABS: Urine Appearance Clear; Urine Bilirubin Negative (Negative); Urine Blood 1+ (Negative); Urine Color Yellow; Urine Glucose Negative (Negative); Urine Ketones 1+ (Negative); Urine Nitrite Negative (Negative); Urine Protein Negative (Negative); Urine Urobilinogen Negative (Negative)
[2021-12-18 21:32] LABS: Urine Bacteria Absent (Absent); Urine Red Blood Cell 3+(>10/hpf) (Absent); Urine Squamous Epithelial Cell Present (Absent); Urine White Blood Cell Trace(0-5/hpf) (Absent)
[2021-12-18] MEDS ORDERED: Glycerin ADULT 2.4 gm SUPP PR ONE (22:06)
[2021-12-18] MEDS ORDERED: NS 0.9% 1000 ml BAG 1,000 ML IV SCH (23:45)
[2021-12-18] MEDS ORDERED: Ondansetron 4 mg VIAL 2 MG/ML 2 ml VIAL IV PRN (23:46)
[2021-12-18] MEDS ORDERED: Saline NASAL SPRAY 0.65% BTL BOTH NARES PRN (23:55)
[2021-12-19] MEDS ORDERED: Iohexol 300 (CONTRAST) 10 ML SDV IV ONE (00:20)
[2021-12-19] MEDS ORDERED: Haloperidol 5 mg/ml SDV IV/IM 5 MG/ML AMP IV SLOW PU ONE (00:40)
[2021-12-19 05:49] LABS: ABS Eosinophils 0.1 10^3/ul (0-0.6); ABS Monocytes 0.4 10^3/ul (0-0.8); ABS Neutrophils 2.9 10^3/ul (1.5-7.7); Eosinophil % 2.5 %; Hematocrit 29 % (42-52); Hemoglobin 9.7 g/dL (14.0-18.0); Lymphocyte % 22.7 %; Mean Corpuscular HGB Conc 34 g/dL (31-36); Mean Corpuscular Hemoglobin 31 pg (27-31); Mean Corpuscular Volume 92 fL (80-94); Mean Platelet Volume 6.8 fL (7.4-10.4); Nucleated Red Blood Cells % 0.1; Platelet Count 133 10^3/uL (150-450); Red Blood Count 3.14 10^6 /uL (4.18-5.48); Red Cell Distribution Width 13 % (10-15); White Blood Count 4.5 10^3/uL (3.5-10.8)
[2021-12-19] MEDS ORDERED: Enoxaparin 40 MG/0.4 ML SYR SUBCUT SCH (06:00)
[2021-12-19 06:32] LABS: Calcium 8.6 mg/dL (8.6-10.3); Potassium 3.7 mmol/L (3.5-5.0); eGFR CKD-EPI 125.5 (>60)
[2021-12-19] MEDS ORDERED: Pantoprazole VIAL 40 MG VIAL IV SCH (09:00)
[2021-12-19] MEDS: Lactated Ringers 1000 ml BAG 1,000 ML IV SCH (16:29)
[2021-12-19] MEDS: Pantoprazole VIAL 40 MG VIAL IV SCH (22:20)
[2021-12-20] MEDS: Lactated Ringers 1000 ml BAG 1,000 ML IV SCH ×2 (03:28→16:35)
[2021-12-20 08:20] LABS: Calcium 8.2 mg/dL (8.6-10.3); Potassium 3.5 mmol/L (3.5-5.0)
[2021-12-20 08:26] LABS: eGFR CKD-EPI 126.2 (>60)
[2021-12-20 09:43] LABS: ABS Eosinophils 0.1 10^3/ul (0-0.6); ABS Lymphocytes 1.1 10^3/ul (1.0-4.8); ABS Monocytes 0.6 10^3/ul (0-0.8); ABS Neutrophils 3.9 10^3/ul (1.5-7.7); Hematocrit 28 % (42-52); Hemoglobin 9.5 g/dL (14.0-18.0); Lymphocyte % 19.1 %; Mean Corpuscular HGB Conc 34 g/dL (31-36); Mean Corpuscular Hemoglobin 32 pg (27-31); Mean Corpuscular Volume 93 fL (80-94); Mean Platelet Volume 7.1 fL (7.4-10.4); Platelet Count 167 10^3/uL (150-450); Red Blood Count 3.02 10^6 /uL (4.18-5.48); Red Cell Distribution Width 13 % (10-15); White Blood Count 5.7 10^3/uL (3.5-10.8)
[2021-12-20] MEDS: Pantoprazole VIAL 40 MG VIAL IV SCH ×2 (09:45→19:24)
[2021-12-20] MEDS ORDERED: Sodium Phosphate ADULT ENEMA 133 ML BTL PR PRN (11:06)
[2021-12-20] MEDS ORDERED: Polyethylene Glycol 3350 BTL 238 GM BTL PO PRN (15:16)
[2021-12-20] MEDS ORDERED: Polyethylene Glycol 3350 17 GM PACKET PO PRN (16:00)
[2021-12-21] MEDS: Lactated Ringers 1000 ml BAG 1,000 ML IV SCH (02:48)
[2021-12-21] MEDS: Pantoprazole VIAL 40 MG VIAL IV SCH (08:46)
[2021-12-21 15:02] VITALS: BP 85/55
== END 2021-12-21 18:20 | disposition home or self-care (01) | DRG 389 ==
LOC: ED 17:58 → EDHOLD 12-19 00:18 → SUATTDRO 12-19 00:18 → MED 12-19 06:16
PROVIDERS: ADMIT Internal Medicine; ATTEND Student in an Organized Health Care Education/Training Program